=== PATIENT | female | born 1980 | race Caucasian/White ===

== ENCOUNTER → 2017-12-17 14:18 | Outpatient (CLI) | payer OTHER, SELFPAY ==
[2017-12-17 14:55] LABS: Absolute Neutrophil Count 6.6 X10^3/uL (2.0-7.7); Basophil# 0.07 X10^3/uL; Basophil% 0.7 % (0-1); Eosinophil# 0.19 X10^3/uL; Eosinophils% 1.8 % (0-5); Hematocrit 41.8 % (37-47); Hemoglobin 13.3 g/dl (12.0-15.0); Lymphocyte % 27.4 % (19-41); Mean Corp Hgb Conc 31.8 g/gl (32-36); Mean Corpuscular Hgb 27.6 pg (27.0-32.0); Mean Corpuscular Volume 86.7 fL (81-99); Mean Platelet Vol. 9.8 fl (6.2-12.0); Monocyte# 0.78 X10^3/uL; Monocyte% 7.4 % (0-10); Neutrophil # 6.61 X10^3/uL (2.7-7.7); Neutrophil % 62.5 % (47-70); Platelet Count 329 K/mm3 (150-450); RBC Distribution Width CV 13.4 % (11.6-14.6); RBC Distribution Width SD 42.5 fl (35.1-43.9); Red Blood Count 4.82 M/mm3 (4.2-5.4); White Blood Count 10.6 K/mm3 (4.4-11.0)
[2017-12-17 14:56] LABS: POSITIVE COUNT NO; POSITIVE DIFFERENTIAL NO; POSITIVE MORPHOLOGY NO
[2017-12-17 15:29] LABS: ALB/GLOB Ratio 1.1 RATIO (0.9-2.4); AST(SGOT) 18 U/L (15-37); Alanine Aminotransfer ALT/SGPT 35 U/L (13-56); Alkaline Phosphatase 50 U/L (45-117); Anion Gap 6 (5-15); BUN 11 mg/dL (7-18); BUN/Creat Ratio 14.6 RATIO (10-20); Calcium,Total 8.5 mg/dL (8.5-10.1); Chloride 105 mmol/L (98-107); Cholesterol 160 mg/dL (200); Creatinine, Serum 0.76 mg/dL (0.55-1.02); EST Glomerular Filtration Rate 92 mL/min (>60); Est Glom Filt Rate - Afr Amer 111 mL/min (>60); Globulin 3.8 g/dL (2.2-4.2); Glucose 79 mg/dL (74-106); High Density Lipoprotein 45 mg/dL; Potassium 3.9 mmol/L (3.5-5.1); Protein, Total 7.8 g/dL (6.4-8.2); Sodium Level 139 mmol/L (136-145); Thyroid Stim Hormone (TSH) 1.02 uIU/mL (0.358-3.74); Triglycerides 116 mg/dL; Very Low Density Lipoprotein 23 mg/dL (5-40)
== END ==
PROVIDERS: Family Provider Family Medicine; PCP Family Medicine; Visit Provider Family Medicine
DX: Z00.00 Encounter for general adult medical examination without abnormal findings (principal); R53.83 Other fatigue
CPT/HCPCS: 36415; 80053; 80061; 84443; 85025

== ENCOUNTER → 2018-07-14 13:51 | Outpatient (CLI) | payer OTHER, SELFPAY ==
--- NOTE | 2018-07-14 13:57 | RAD_ITS ---
STUDY: X-RAY CHEST REASON FOR EXAM: Female, 38 years old. Sharp left clavicle pain. TECHNIQUE: PA and lateral views. COMPARISON: 01/12/2017. FINDINGS: The lungs are clear and expanded. There is no demonstrated pleural abnormality. Normal size heart. Normal mediastinum and alfred. Normal visualized pulmonary arteries. Normal visualized aortic arch and descending thoracic aorta. Normal visualized thoracic spine. Normal visualized ribs, clavicles, and shoulders. There is no demonstrated abnormality of the visualized soft tissue structures of the upper abdomen. RAD/Chest PA and Lateral IMPRESSION: Normal x-ray examination of the chest and unchanged since 01/12/2017. Electronically Signed: Josemanuel Sorenson MD at 14:17 EST , Service support ,
== END ==
PROVIDERS: Family Provider Family Medicine; PCP Family Medicine; Referring Provider Family Medicine; Visit Provider Family Medicine
DX: R07.89 Other chest pain (principal)
CPT/HCPCS: 71046

== ENCOUNTER 2019-06-24 09:19 | Emergency (ER) | payer OTHER, SELFPAY ==
[2019-06-24 09:20] VITALS: BP 134/80; PULSE 98; RESP 16; TEMP 37.1; O2SAT 98; BMI 32.5
--- NOTE | 2019-06-24 09:33 | CT_ITS ---
STUDY: CT BRAIN WITHOUT CONTRAST REASON FOR EXAM: Female, 39 years old. Recent head injury. Dizziness, nausea, confusion. RADIATION DOSAGE (If Supplied By Facility): CTDIvol = ( 44.99 ) mGy, DLP = ( 745.49 ) mGycm TECHNIQUE: Transaxial CT imaging of the brain was performed without administration of intravenous contrast material. Individualized dose optimization techniques were used for this CT. COMPARISON: No relevant priors. FINDINGS: Normal soft tissue structures. Normal calvarium. Normal size ventricles and extra-axial spaces for the patient's age. Normal white matter tracts of the cerebral hemispheres. Normal basal ganglia and thalami. Normal brainstem. Normal cerebellum. There is no intracranial hemorrhage. There are no findings of an acute ischemic infarction. Partial opacification of the right mastoid air cells. CT/Brain/Head without Contrast IMPRESSION: Normal unenhanced CT scan of the brain. Partial opacification of the right mastoid air cells. Electronically Signed: Shukri Ortega, at 10:22 EST , Service support ,
--- NOTE | 2019-06-24 09:34 | ED.VIS.GEN ---
History of Present Illness Chief Complaint: Headache Informant: Patient Onset: Days - 5 days Context: Gradual Onset Timing: Waxes and wanes Current Severity: Severe Maximum Severity: Severe Narrative: Patient presents with headache and points to the left and right sides of her forehead and describing her areas of pain. Last Friday evening, 4 days ago, she was lying in her bed when her 4-year-old flipped and hit her in the left forehead. She states she had a headache at that time. On Friday she felt a little bit off but really did not have significant headache. Early Friday afternoon she developed headache which she thought was more consistent with her migraine. Typically she will take ibuprofen and lie down and her migraine resolved. She has not had any significant improvement in her headache over the past 2 days. She does have light sensitivity along with nausea and vomiting. She reports some floaters in her vision which she has intermittently had with her migraines. She denies fever or chills. - Past Medical History (1) Migraine Status: Chronic Past Medical History - Allergies and Home Meds Allergies/Adverse Reactions: Allergies hydrocodone bitartrate [From Vicodin] Allergy (Verified 01/12/17 13:37) Hives topiramate [From Topamax] Adverse Reaction (Verified 01/12/17 13:37) Other Primary Care Physician: Brayan Pavon DO [Primary Care Provider] - Surgical History: no surgical history Lives: Spouse/ Significant Other Smoking Status: Never smoker - Family History Maternal Family History: Reports: No pertinent history Review of Systems General: Denies: Chills, Fever Eyes: Reports: Visual changes - bilaterally - Floaters in vision ENT: Denies: Bilateral ear pain, Sore throat Cardiovascular: Denies: Chest pain Respiratory: Denies: Dyspnea, Cough Gastrointestinal: Reports: Nausea, Vomiting. Denies: Abdominal pain Musculoskeletal: Denies: Neck pain, Extremity Pain Skin: Denies: Rash Neurological: Reports: Headache Psych: Reports: Anxiety Allergy: Denies: Uticaria Physical Exam Vital Signs/Narrative: Vital Signs Temp Pulse Resp BP Pulse Ox 06/24/19 09:20 98.8 F 98 16 134/80 H 98 General: Well nourished, Well developed Head: Normocephalic ENT: Moist mucous membranes Cardiovascular: Regular rate, Regular rhythm Respiratory: No distress, CTA bilaterally Abdomen: Soft, Nontender, Hypoactive bowel sounds Extremities: Nontender Skin: Normal color, No rash Neurological: Alert, Oriented x3, - - No focal neuro deficit Psychological: Tearful Diagnostic/Tx/Re-eval Impressions Brain CT 06/24/19 09:33 IMPRESSION: Normal unenhanced CT scan of the brain. Partial opacification of the right mastoid air cells. Electronically Signed: Shukri Ortega, at 10:22 EST , Service support , 06/24/19 09:33 Brain/Head without Contrast [CT] Stat - Medical Decision Making She was given Toradol, Compazine, Benadryl, and IV fluids. Repeat evaluation she is feeling improved. She may have a degree of concussion, but I think majority of her headache is secondary to her underlying migraines. I discussed both migraines and concussions with patient and at bedside. Patient be discharged at this time. I will give her a short course of Toradol, Reglan, and Benadryl at home if she has recurrent migraine. ED Disposition - Plan for ED Patient: Disposition: Home or Assisted Living Diagnosis: Migraine, Concussion Instructions: ED, Migraine (Classical), CONCUSSION, No Wake Up Prescriptions: DiphenhydrAMINE [Benadryl] 50 mg PO TID PRN PRN #20 capsule PRN Reason: Migraine Symptoms Metoclopramide [Reglan] 10 mg PO Q8H PRN PRN #10 tablet PRN Reason: Migraine Symptoms Ketorolac [Toradol] 10 mg PO Q8H PRN #10 tablet PRN Reason: Migraine Symptoms Referrals: Brayan Pavon DO [Primary Care Provider] - 3-5 Days if not improving
[2019-06-24] MEDS: 0.9% Normal Saline 1,000 ML 999 ML IV (09:55)
[2019-06-24] MEDS: Ketorolac 30 MG/ML Syringe IV (09:55)
[2019-06-24] MEDS: proCHLORPERazine 10 MG/2 ML Vial IV (09:56)
[2019-06-24] MEDS: DiphenhydrAMINE 50 MG/ML Syringe 25 MG IV (09:59)
[2019-06-24 11:39] VITALS: BP 124/66; PULSE 71; RESP 15; O2SAT 98
[2019-06-24 11:56] VITALS: BP 125/67; PULSE 71; RESP 15; O2SAT 97
== END 2019-06-24 11:57 | disposition home or self-care (01) ==
PROVIDERS: Emergency Provider Emergency Medicine; Family Provider Family Medicine; PCP Family Medicine
DX: G43.909 Migraine, unspecified, not intractable, without status migrainosus (principal); S06.0X0A Concussion without loss of consciousness, initial encounter; W50.0XXA Accidental hit or strike by another person, initial encounter; Y93.9 Activity, unspecified; Y92.9 Unspecified place or not applicable
CPT/HCPCS: 70450; 96361; 96374; 96375; 99283; J7030; A4216

== ENCOUNTER → 2021-06-16 | Outpatient (CLI) | payer OTHER, SELFPAY ==
[2021-06-16 14:41] LABS: Absolute Lymphocyte Count 2.51 X10^3/uL (0.83-4.51); Absolute Neutrophil Count 7.4 X10^3/uL (2.0-7.7); Basophil# 0.09 X10^3/uL; Basophil% 0.8 % (0-1); Eosinophils% 1.8 % (0-5); Hematocrit 42.7 % (37-47); Hemoglobin 13.4 g/dL (12.0-15.0); Lymphocyte # 2.51 X10^3/ul (0.83-4.51); Lymphocyte % 22.5 % (19-41); Mean Corp Hgb Conc 31.4 g/dL (32-36); Mean Corpuscular Hgb 27.8 pg (27.0-32.0); Mean Corpuscular Volume 88.6 fL (81-99); Mean Platelet Vol. 10.4 fl (6.2-12.0); Monocyte# 0.91 X10^3/uL; Monocyte% 8.2 % (0-10); NRBC Flagged by Analyzer 0 % (0-5); Neutrophil # 7.39 X10^3/uL (2.7-7.7); Neutrophil % 66.2 % (47-70); Platelet Count 393 K/mm3 (150-450); RBC Distribution Width CV 13.1 % (11.6-14.6); RBC Distribution Width SD 42.3 fl (35.1-43.9); Red Blood Count 4.82 M/mm3 (4.2-5.4); White Blood Count 11.2 K/mm3 (4.4-11.0)
[2021-06-16 15:01] LABS: Hemoglobin A1c 5.4 % (3.8-5.6)
[2021-06-16 16:51] LABS: ALB/GLOB Ratio 0.9 RATIO (0.9-2.4); AST(SGOT) 27 U/L (15-37); Alanine Aminotransfer ALT/SGPT 49 U/L (13-56); Albumin, Serum 3.8 g/dL (3.2-5.0); Alkaline Phosphatase 63 U/L (45-117); Anion Gap 9 (5-15); BUN 12 mg/dL (7-18); BUN/Creat Ratio 17.3 RATIO (10-20); Calcium,Total 8.9 mg/dL (8.5-10.1); Chloride 105 mmol/L (98-107); Cholesterol 199 mg/dL (200); Creatinine, Serum 0.69 mg/dL (0.55-1.02); EST Glomerular Filtration Rate 100 mL/min (>60); Est Glom Filt Rate - Afr Amer 121 mL/min (>60); Estradiol 186.5 pg/mL; Free T3 3.1 pg/mL (2.18-3.98); Globulin 4.2 g/dL (2.2-4.2); Glucose 78 mg/dL (74-106); High Density Lipoprotein 43 mg/dL; Potassium 3.8 mmol/L (3.5-5.1); Sodium Level 140 mmol/L (136-145); T4 Total, Thyroxin 12.6 ug/dL (4.8-13.9); Thyroid Stim Hormone (TSH) 1.71 uIU/mL (0.358-3.74); Triglycerides 127 mg/dL; Very Low Density Lipoprotein 25 mg/dL (5-40)
[2021-06-18 09:06] LABS: Progesterone Level 0.57 ng/mL (See Comment); Vitamin B12 544 pg/mL (211-911); Vitamin D,25 Hydroxy 57.1 ng/mL
[2021-06-19 16:33] LABS: Thyroglobulin Antibody < 1.0 IU/mL (0.0-0.9); Thyroid Peroxidase AB < 8 IU/mL (0-34)
== END | disposition home or self-care (01) ==
LOC: LABSPEC 14:13
PROVIDERS: PCP Family Medicine; Visit Provider Nurse Practitioner Family
DX: R07.9 Chest pain, unspecified (principal); R53.83 Other fatigue; L65.9 Nonscarring hair loss, unspecified; E28.2 Polycystic ovarian syndrome
CPT/HCPCS: 80053; 80061; 82306; 82607; 82670; 83036; 83516; 84144; 84403; 84436; 84439; 84443; 84481; 85025; 86376; 86800

== ENCOUNTER 2021-09-06 16:53 | Outpatient (REF) | payer OTHER, SELFPAY ==
[2021-09-06 17:34] LABS: Absolute Lymphocyte Count 2.88 X10^3/uL (0.83-4.51); Absolute Neutrophil Count 9.6 X10^3/uL (2.0-7.7); Basophil# 0.09 X10^3/uL; Basophil% 0.6 % (0-1); Eosinophil# 0.39 X10^3/uL; Eosinophils% 2.7 % (0-5); Hematocrit 33.7 % (37-47); Hemoglobin 10.5 g/dL (12.0-15.0); Lymphocyte # 2.88 X10^3/ul (0.83-4.51); Lymphocyte % 20.2 % (19-41); Mean Corp Hgb Conc 31.2 g/dL (32-36); Mean Corpuscular Hgb 27.5 pg (27.0-32.0); Mean Corpuscular Volume 88.2 fL (81-99); Mean Platelet Vol. 10.6 fl (6.2-12.0); Monocyte# 1.14 X10^3/uL; NRBC Flagged by Analyzer 0 % (0-5); Neutrophil # 9.55 X10^3/uL (2.7-7.7); Neutrophil % 67.2 % (47-70); Platelet Count 435 K/mm3 (150-450); RBC Distribution Width SD 44.9 fl (35.1-43.9); Red Blood Count 3.82 M/mm3 (4.2-5.4); White Blood Count 14.2 K/mm3 (4.4-11.0)
[2021-09-06 17:59] LABS: hCG Titer Quant., Serum < 1 mIU/mL (1-3)
[2021-09-06 18:15] LABS: Anion Gap 7 (5-15); BUN 9 mg/dL (7-18); BUN/Creat Ratio 11.9 RATIO (10-20); Calcium,Total 8.5 mg/dL (8.5-10.1); Chloride 108 mmol/L (98-107); Creatinine, Serum 0.76 mg/dL (0.55-1.02); EST Glomerular Filtration Rate 90 mL/min (>60); Est Glom Filt Rate - Afr Amer 108 mL/min (>60); Glucose 122 mg/dL (74-106); Potassium 4.3 mmol/L (3.5-5.1); Sodium Level 142 mmol/L (136-145); T4 Free Direct 0.95 ng/dL (0.76-1.46); T4 Total, Thyroxin 10.4 ug/dL (4.8-13.9); Thyroid Stim Hormone (TSH) 1.05 uIU/mL (0.358-3.74)
== END 2021-09-06 23:59 | disposition short-term general hospital (02) ==
LOC: LABSPEC 16:53
PROVIDERS: PCP Family Medicine; Visit Provider Nurse Practitioner Family
DX: E03.9 Hypothyroidism, unspecified (principal); N92.0 Excessive and frequent menstruation with regular cycle
CPT/HCPCS: 80048; 84436; 84439; 84443; 84702; 85025

== ENCOUNTER → 2022-01-23 | Outpatient (CLI) | payer OTHER, SELFPAY | END | disposition home or self-care (01) | LOC: LABSPEC 12:58 | PROVIDERS: PCP Family Medicine; Visit Provider Nurse Practitioner Family | DX: Z12.4 Encounter for screening for malignant neoplasm of cervix (principal) | CPT/HCPCS: 88175; G0145 ==

== ENCOUNTER → 2022-01-25 | Outpatient (CLI) | payer OTHER, SELFPAY ==
[2022-01-25 12:08] LABS: Absolute Lymphocyte Count 2.26 X10^3/uL (0.83-4.51); Absolute Neutrophil Count 5.9 X10^3/uL (2.0-7.7); Basophil% 1.1 % (0-1); Eosinophil# 0.22 X10^3/uL; Eosinophils% 2.4 % (0-5); Hematocrit 43.1 % (37-47); Hemoglobin 13.4 g/dL (12.0-15.0); Lymphocyte # 2.26 X10^3/ul (0.83-4.51); Lymphocyte % 24.3 % (19-41); Mean Corp Hgb Conc 31.1 g/dL (32-36); Mean Corpuscular Hgb 27.3 pg (27.0-32.0); Monocyte# 0.81 X10^3/uL; Monocyte% 8.7 % (0-10); NRBC Flagged by Analyzer 0 % (0-5); Neutrophil # 5.87 X10^3/uL (2.7-7.7); Platelet Count 362 K/mm3 (150-450); RBC Distribution Width CV 13.3 % (11.6-14.6); White Blood Count 9.3 K/mm3 (4.4-11.0)
[2022-01-25 12:34] LABS: Vitamin B12 440 pg/mL (211-911)
[2022-01-25 12:39] LABS: Progesterone Level < 0.21 ng/mL (See Comment)
[2022-01-25 12:47] LABS: Hemoglobin A1c 5.6 % (3.8-5.6)
[2022-01-25 13:01] LABS: AST(SGOT) 15 U/L (15-37); Alanine Aminotransfer ALT/SGPT 29 U/L (13-56); Albumin, Serum 3.6 g/dL (3.2-5.0); Alkaline Phosphatase 51 U/L (45-117); Anion Gap 5 (5-15); BUN 13 mg/dL (7-18); BUN/Creat Ratio 18.4 RATIO (10-20); Calcium,Total 9.1 mg/dL (8.5-10.1); Chloride 110 mmol/L (98-107); Cholesterol 163 mg/dL (200); Creatinine, Serum 0.71 mg/dL (0.55-1.02); EST Glomerular Filtration Rate 97 mL/min (>60); Est Glom Filt Rate - Afr Amer 117 mL/min (>60); Estradiol 68.4 pg/mL; Ferritin 28 ng/mL (8-252); Globulin 3.6 g/dL (2.2-4.2); Glucose 91 mg/dL (74-106); High Density Lipoprotein 50 mg/dL; Iron 36 ug/dL (50-170); Potassium 4.5 mmol/L (3.5-5.1); Protein, Total 7.2 g/dL (6.4-8.2); Sodium Level 139 mmol/L (136-145); T4 Free Direct 0.98 ng/dL (0.76-1.46); Triglycerides 96 mg/dL; Very Low Density Lipoprotein 19 mg/dL (5-40)
[2022-01-29 12:08] LABS: Testosterone, % Free 1.88 % (0.50-2.80); Testosterone, Free 0.32 ng/dL (0.10-0.85); Testosterone, Total 17 ng/dL (8-60)
[2022-01-29 15:06] LABS: DHEA Sulfate 92.9 ug/dL (57.3-279.2)
== END | disposition home or self-care (01) ==
LOC: BIMLAB 10:23
PROVIDERS: PCP Nurse Practitioner Family; Referring Provider Nurse Practitioner Family; Visit Provider Nurse Practitioner Family
DX: E03.9 Hypothyroidism, unspecified (principal); R53.83 Other fatigue; E28.2 Polycystic ovarian syndrome
CPT/HCPCS: 36415; 80053; 80061; 82607; 82627; 82670; 82728; 82746; 83036; 83540; 84144; 84402; 84403; 84439; 84443; 85025; 82626

== ENCOUNTER 2022-07-10 17:04 | Outpatient (CLI) | payer OTHER, SELFPAY ==
[2022-07-10 17:21] LABS: Mucous, Urine 0 SEEN /hpf (<or=2+)
[2022-07-10 17:33] LABS: Color, Urine Yellow (Yellow); Glucose, Dipstick Normal (Normal); Ketone-Dipstick 5 mg/dl (Negative); Leukocyte Esterase-Dipstick 500 /ul (Negative); Nitrite-Dipstick Negative (Negative); Occult Blood-Urine 50 /ul (Negative); Protein-Dipstick Negative (Negative); Urine Bilirubin Dipstick Negative (Negative); Urine Clarity Turbid (Clear); Urine Urobilinogen Normal (Normal)
[2022-07-10 17:40] LABS: White Blood Cells 10-25 SEEN /hpf (0-5)
[2022-07-10 17:41] LABS: Amorphous Sediment 2+; Squamous Epithelial Cells - UA 0-5 SEEN /hpf (5-10)
[2022-07-10 17:42] LABS: Bacteria 2+ /hpf (None Seen); Red Blood Cells-Urine 0-5 SEEN /hpf (0-5)
== END 2022-07-10 23:59 | disposition home or self-care (01) ==
LOC: LABSPEC 17:04
PROVIDERS: PCP Nurse Practitioner Family; Visit Provider Nurse Practitioner Family
DX: N39.0 Urinary tract infection, site not specified (principal)
CPT/HCPCS: 81001; 87077; 87086; 87088; 87186

== ENCOUNTER 2023-03-23 04:16 | Emergency (ER) | payer OTHER, SELFPAY ==
[2023-03-23 04:17] VITALS: BP 131/52; PULSE 88; RESP 14; TEMP 35.8; O2SAT 100; BMI 33.3
--- NOTE | 2023-03-23 04:40 | RAD_ITS ---
INDICATION: chest pain EXAMINATION/TECHNIQUE: X-RAY - XR Chest 2 Views COMPARISON: 07/14/2018. FINDINGS: LINES/DEVICES: None. LUNGS: No consolidation or evidence of an effusion. No evidence of edema or a pneumothorax. MEDIASTINUM AND CARDIOVASCULAR STRUCTURES: Cardiac silhouette is normal in size and contour. Mediastinum is unremarkable. BONES AND SOFT TISSUES: No acute abnormality. RAD/Chest PA and Lateral IMPRESSION: No evidence of cardiopulmonary disease. Electronically Signed: Bucky De La Rosa DO at 5:16 EDT ,
--- NOTE | 2023-03-23 04:41 | EKG12_ITS ---
Test Reason : CP Blood Pressure : / mmHG Vent. Rate : 081 BPM Atrial Rate : 081 BPM P-R Int : 152 ms QRS Dur : 082 ms QT Int : 378 ms P-R-T Axes : 035 007 022 degrees QTc Int : 439 ms Normal sinus rhythm Normal ECG Confirmed by TEE MONTOYA ([id number]), field map editor SONY LORENZANA ([id number]) on 03/31/2023 1:58:35 PM Referred By: Confirmed By:TEE MONTOYA
[2023-03-23 04:52] LABS: Absolute Lymphocyte Count 2.58 X10^3/uL (0.83-4.51); Absolute Neutrophil Count 6.8 X10^3/uL (2.0-7.7); Basophil# 0.11 X10^3/uL; Eosinophil# 0.27 X10^3/uL; Eosinophils% 2.5 % (0-5); Hematocrit 41.2 % (37-47); Hemoglobin 13.2 g/dL (12.0-15.0); Lymphocyte # 2.58 X10^3/ul (0.83-4.51); Mean Corpuscular Volume 90.5 fL (81-99); Monocyte# 0.99 X10^3/uL; Monocyte% 9.2 % (0-10); NRBC Flagged by Analyzer 0 % (0-5); Neutrophil # 6.76 X10^3/uL (2.7-7.7); Neutrophil % 62.8 % (47-70); Platelet Count 311 K/mm3 (150-450); RBC Distribution Width CV 13.1 % (11.6-14.6); RBC Distribution Width SD 42.6 fl (35.1-43.9); Red Blood Count 4.55 M/mm3 (4.2-5.4); White Blood Count 10.8 K/mm3 (4.4-11.0)
[2023-03-23] MEDS: 0.9% Normal Saline 1,000 ML 999 ML IV (04:55)
[2023-03-23 04:57] VITALS: BP 118/66; PULSE 83
[2023-03-23] MEDS: Nitroglycerin SL (ED/IMG/CATH) 0.4 MG TABLET SL ×2 (04:57→05:48)
[2023-03-23 05:03] LABS: D-Dimer Quantitative (DVT/PE) 0.28 FEU/ug/m (0.27-0.49)
[2023-03-23 05:18] LABS: Anion Gap 6 (5-15); BUN 10 mg/dL (7-18); BUN/Creat Ratio 13.4 RATIO (10-20); Calcium,Total 8.8 mg/dL (8.5-10.1); Chloride 109 mmol/L (98-107); Creatinine, Serum 0.75 mg/dL (0.55-1.02); EST Glomerular Filtration Rate 90 mL/min (>60); Est Glom Filt Rate - Afr Amer 109 mL/min (>60); Estimated Creatinine Clearance 84.38 ml/min; Glucose 104 mg/dL (74-106); Magnesium 2.4 mg/dL (1.6-2.6); Potassium 4.3 mmol/L (3.5-5.1); Sodium Level 140 mmol/L (136-145); Troponin-I HS < 3 pg/mL (3.0-54.0)
[2023-03-23 05:46] VITALS: BP 100/63; PULSE 81; RESP 16; O2SAT 100
[2023-03-23 05:48] VITALS: BP 106/65; PULSE 76
[2023-03-23] MEDS: diazePAM 5 MG Tablet PO (06:05)
[2023-03-23 06:06] VITALS: BP 116/71; PULSE 76
--- NOTE | 2023-03-23 06:34 | EX.ED.DYSGE1 ---
HPI History of Present Illness Chief Complaint: Chest Pain Narrative Narrative: Patient is a 43-year-old female with past medical history of migraine headache and PCOS. 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 She reports that over the past 3 to 5 days she will have short-lived intermittent bouts of left-sided chest discomfort. She states that she was watching a movie with the family this evening and experienced the same chest discomfort but that it was able to wane enough to where she could fall asleep. She states however she woke around 3:30 in the morning with increased pain and this concerned her as it had never returned like this before and therefore she presents for evaluation. She denies any illicit drug use she denies any recent travel surgery or history of DVT/PE [facility] Medical History Migraine PCOS (polycystic ovarian syndrome) Home Medications multivitamin (Daily Multiple tablet) 1 ea PO DAILY 08/23/16 [History Last Taken 06/24/19] diazepam 2 mg tablet (Valium) 2 mg PO TID PRN anxiety 5 days #15 tabs 03/23/23 [Rx Last Taken Unknown] melatonin 3 mg capsule 3 mg PO QHS 03/23/23 [History Last Taken Unknown] Allergy/AdvReac Type Severity Reaction Status Date / Time hydrocodone bitartrate Allergy Hives Verified 03/23/23 04:20 [From Vicodin] topiramate [From Topamax] AdvReac Other Verified 03/23/23 04:20 Surgical History (Updated 03/23/23 @ 04:22 by Tasha Zamarripa) H/O knee surgery Hx of cholecystectomy Social History Smoking Status: Never smoker ROS ROS ED Constitutional Constitutional ED: Denies chills or fever(s) Eyes Eyes: Denies change in vision ENT ENT ED: Denies sore throat Cardiovascular Cardiovascular: Reports chest pain; Denies palpitations or racing heartbeat Respiratory/Chest Respiratory/Chest: Denies cough or dyspnea Gastrointestinal Gastrointestinal: Denies abdominal pain, diarrhea, nausea or vomiting Genitourinary Genitourinary ED: Denies dysuria Musculoskeletal Musculoskeletal: Denies myalgias Integumentary Denies rash Neurologic Neurologic: Denies headache(s) or paresthesias Hematologic/Lymphatic Hematologic/Lymphatic: Denies easy bleeding or easy bruising EXAM Physical Exam Const Vital Signs: 03/23/23 04:17 03/23/23 04:23 03/23/23 04:57 Temperature 96.5 F L Temperature Source Temporal Pulse Rate 88 83 Respiratory Rate 14 Respiratory Effort Normal Non-Labored Blood Pressure 131/52 H 118/66 Blood Pressure Mean 78 Pulse Ox 100 Oxygen Delivery Method Room Air 03/23/23 05:46 03/23/23 05:48 03/23/23 06:06 Temperature Temperature Source Pulse Rate 81 76 76 Respiratory Rate 16 Respiratory Effort Blood Pressure 100/63 106/65 116/71 Blood Pressure Mean 75 86 Pulse Ox 100 Oxygen Delivery Method Room Air Positive well nourished, well developed and obese General Appearance ED: well developed Nutritional Appearance: obese HEENT HEENT Narrative: Normocephalic atraumatic Eyes PERRL and EOMs intact bilaterally General Eye ED: Negative for scleral icterus Neck supple Neck Narrative: No nuchal rigidity or meningeal signs No crepitance palpated Chest Wall palpation of chest normal Chest Narrative: No bony deformity or crepitance Resp normal respiratory effort and clear to auscultation bilaterally Cardio regular rate and regular rhythm Rate: other Other Details: Radial and carotid pulses are equal and symmetric GI normal to inspection, nondistended, normoactive bowel sounds, non-tender, non-distended and no masses GI Narrative: No voluntary guarding or rigidity. No pulsatile mass or fluid wave. Auscultation: normoactive bowel sounds Palpation: soft Extremity normal to inspection Extremity Narrative: No asymmetric edema no pitting edema negative Homans' sign bilaterally Neuro oriented x3, CN's II-XII intact bilaterally and no sensory deficits noted Sensorium / Orientation: alert Motor Exam: strength 5/5 throughout Psych Psych Narrative: Patient has a nervous/anxious affect Skin no rashes or lesions noted MDM MDM MDM Narrative Medical decision making narrative: Ended to the ER with stable vitals and reported intermittent chest pain for the last 4 to 5 days which was now more intense. She is low risk for cardiovascular disease as well as PE but based on the recurrent symptoms I do like to perform basic cardiac work-up with D-dimer. Differential diagnosis is for acute coronary syndrome versus pulmonary embolus versus pneumonia versus pneumothorax versus anxiety versus muscular spasm or esophageal spasm. Blood work showed a normal troponin and D-dimer going against acute coronary syndrome or pulmonary embolus or dissection as a cause. Chest x-ray revealed no acute infiltrate pneumothorax or widening of the mediastinum. Patient was given Valium and this did help resolve her pain indicating that the symptoms are most likely anxiety and musculoskeletal in nature. At this time as the patient is low risk for coronary vascular disease and her D-dimer and troponin are normal I do not feel there is need for further work-up in the ER and she can be discharged home with symptomatic care. History & Record Review Discussion w/independent historian: Patient Lab Data Attestation: I reviewed the patient's lab results. Labs: Laboratory Results - last 24 hr 03/23/23 04:35 WBC 10.8 RBC 4.55 Hgb 13.2 Hct 41.2 MCV 90.5 MCH 29.0 MCHC 32.0 RDW Std Deviation 42.6 RDW Coeff of Leti 13.1 Plt Count 311 MPV 10.0 Immature Gran % (Auto) 0.500 Neut % (Auto) 62.8 Lymph % (Auto) 24.0 Jasper % (Auto) 9.2 Eos % (Auto) 2.5 Baso % (Auto) 1.0 Absolute Neuts (auto) 6.8 Absolute Lymphs (auto) 2.58 Nucleated RBC % 0 D-Dimer Quant (PE/DVT) 0.28 Sodium 140 Potassium 4.3 Chloride 109 H Carbon Dioxide 25.0 Anion Gap 6 BUN 10 Creatinine 0.75 Estim Creat Clear Calc 84.38 Est GFR (MDRD) Af Amer 109 Est GFR (MDRD) Non-Af 90 BUN/Creatinine Ratio 13.4 Glucose 104 Calcium 8.8 Magnesium 2.4 Troponin I High Sens < 3 L Radiography Diagnostic Testing: Clinical Impression(s) from Imaging Studies Chest X-Ray 03/23/23 04:40 IMPRESSION: No evidence of cardiopulmonary disease. Electronically Signed: Bucky De La Rosa DO at 5:16 EDT , 2 view chest x-ray as interpreted by the emergency medicine physician reveals no acute infiltrate pneumothorax pleural effusion or widening of the mediastinum Discharge Plan Triage Chief Complaint: Chest Pain ED Provider: Merlin Herrmann Dx/Rx/DC Orders Clinical Impression: Acute nonspecific chest pain with low risk of coronary artery disease Instructions: ED Chest Pain, Uncertain Cause Prescriptions: New diazepam [Valium] 2 mg tablet 2 mg PO TID PRN (Reason: anxiety) 5 Days Qty: 15 0RF No Action multivitamin [Daily Multiple] 1 EACH tablet 1 ea PO DAILY melatonin 3 mg capsule 3 mg PO QHS Primary Care Provider: Missy Loyd [employer] Referrals: Missy Loyd [employer], [employer]-[facility] [Primary Care Provider] - Activity Restrictions/Additional Instructions: Your work-up today for acute coronary syndrome and blood clot were negative. Symptoms could be related to muscular spasm and/or anxiety based on your increased stress. Please take the prescribed medication as directed to help control any further symptoms and if they worsen or you have any further concerns please return to the ER for repeat evaluation Disposition Disposition: Home, Self Care
[2023-03-23 07:05] VITALS: BP 102/74; PULSE 77; RESP 16
== END 2023-03-23 07:06 | disposition home or self-care (01) ==
PROVIDERS: Emergency Provider Emergency Medicine; PCP Nurse Practitioner Family; Visit Provider Emergency Medicine
DX: R07.9 Chest pain, unspecified (principal); Z90.49 Acquired absence of other specified parts of digestive tract
CPT/HCPCS: 71046; 80048; 83735; 84484; 85025; 85379; 93005; 96360; 99285; J7030; A4216

== ENCOUNTER → 2023-09-19 | Outpatient (CLI) | payer OTHER, SELFPAY | END | disposition home or self-care (01) | LOC: LABSPEC 09:56 | PROVIDERS: PCP Nurse Practitioner Family; Referring Provider Physician Assistant Surgical; Visit Provider Physician Assistant Surgical | DX: N39.0 Urinary tract infection, site not specified (principal) | CPT/HCPCS: 87086 ==

== ENCOUNTER 2024-12-29 03:20 | Emergency (ER) | payer OTHER, SELFPAY ==
[2024-12-29 03:21] VITALS: BP 126/71; PULSE 105; RESP 18; TEMP 36.8; O2SAT 97
[2024-12-29 03:24] VITALS: BP 126/71; PULSE 105; RESP 18; TEMP 36.8; O2SAT 98
[2024-12-29 03:46] LABS: Bacteria 0 SEEN /hpf (None Seen); Mucous, Urine 0 SEEN /hpf (<or=2+); White Blood Cells 0 SEEN /hpf (0-5)
[2024-12-29 03:53] LABS: Color, Urine Yellow (Yellow); Glucose, Dipstick Normal (Normal); Ketone-Dipstick Negative (Negative); Leukocyte Esterase-Dipstick Negative /ul (Negative); Nitrite-Dipstick Negative (Negative); Occult Blood-Urine 10 /ul (Negative); Protein-Dipstick 15 mg/dl (Negative); Specific Gravity, Urine 1.015 (1.002-1.030); Urine Bilirubin Dipstick Negative (Negative); Urine Clarity Clear (Clear); Urine Urobilinogen Normal (Normal)
[2024-12-29 04:07] LABS: Red Blood Cells-Urine 0-5 SEEN /hpf (0-5); Squamous Epithelial Cells - UA 0-5 SEEN /hpf (5-10)
--- NOTE | 2024-12-29 04:08 | CT_ITS ---
PROCEDURE: ABDOMEN/PELVIS WITHOUT CONT 12/29/2024 REASON FOR EXAM: PAIN TECHNIQUE: Abdomen and pelvis CT without intravenous contrast. Noncontrast technique limits evaluation of the abdominal and pelvic viscera. Coronal and Sagittal reconstruction series were provided. One or more dose reduction techniques were used (e.g., Automated exposure control, adjustment of the mA and/or kV according to patient size, use of iterative reconstruction technique). PATIENT PREPARATION: Per protocol ORAL CONTRAST TYPE: None. COMPARISON: None available FINDINGS: Platelike area of opacity and small adjacent ill-defined ground-glass nodular densities posterior right lower lobe for example axial 2 may represent infectious/inflammatory process. Visualized left lung appears clear. The liver, adrenal glands, pancreas and spleen appear within limits on noncontrast imaging. The gallbladder is not visualized. No renal stones or hydronephrosis. No evidence of ureteral or bladder stone. Ureters appear within limits on noncontrast imaging. Mild asymmetric mostly right upper pole perinephric stranding may be reactive. No bowel dilation or free air. The appendix is not identified, no secondary signs. Abdominal aorta appears within limits on noncontrast imaging. No adenopathy identified. The ovaries, uterus and bladder appear within limits on noncontrast imaging. No free fluid. The visualized osseous structures appear within limits. CT/Abdomen/Pelvis without Cont IMPRESSION: Platelike area of opacity and small adjacent ill-defined ground-glass nodular d ensities posterior right lower lobe for example axial 2 may represent infectious/inflammatory process. No renal stones or hydronephrosis. No evidence of ureteral or bladder stone. U reters appear within limits on noncontrast imaging. Mild asymmetric mostly right upper pole perinephric stranding may be reactive. Reading Location: [id number]
--- NOTE | 2024-12-29 04:10 | EDS_ITS ---
HPI HPI - Female History of Present Illness Chief Complaint: Complaint Informant: patient Associated Symptoms Associated Symptoms: Positive for Dysuria; Negative for Hematuria Narrative Narrative: 44-year-old female history of prior UTIs. Never had a kidney stone. Prior appendectomy, cholecystectomy and prior . 2-week history of intermittent urinary symptoms. Primarily intermittent dysuria. No gross hematuria. States she initially tried to treat it with cranberry juice. She did not get relief. She had a urine culture done at [facility] which showed Klebsiella causing UTI. Initially was placed on Macrobid then they changed the antibiotic to Bactrim due to the sensitivity results. States she has had some intermittent flank pain. Went to be evaluated. Denies nausea vomiting. Denies fever. Prior similar symptoms: Yes Recent Illness/Hospitalization: No PFSH PFSH Medical History UTI (urinary tract infection) PCOS (polycystic ovarian syndrome) Migraine Home Medications ?Medication ?Instructions ?Recorded ?Last Taken ?Type multivitamin (Daily Multiple 1 ea PO DAILY 08/23/16 History tablet) diazepam 2 mg tablet (Valium) 2 mg PO TID PRN anxiety 5 days #15 03/23/23 Unknown Rx tabs Saccharomyces boulardii 250 mg 250 mg PO BID 09/19/23 Unknown History capsule (Digest Probiotic (S.boulardii)) adrenal cortex (porcine) 80 mg mg PO 09/19/23 Unknown History tablet phenazopyridine 100 mg tablet 100 mg PO TID PRN pain 6 doses #7 09/19/23 Unknown Rx (Pyridium) tabs turmeric root extract 500 mg tablet 500 mg PO DAILY Unknown History Allergy/AdvReac Type Severity Reaction Status Date / Time hydrocodone bitartrate (From Allergy Hives Verified 12/29/24 03:20 Vicodin) topiramate (From Topamax) AdvReac Other Verified 12/29/24 03:20 Family History no significant family his Surgical History History of 3 sections History of appendectomy Hx of cholecystectomy H/O knee surgery Social History Smoking Status: Never smoker ROS ROS ED ROS Narrative Dysuria. Right flank pain. Constitutional Constitutional ED: Denies chills or fever(s) Eyes Eyes: Denies blurry vision ENT ENT ED: Denies ear pain Cardiovascular Cardiovascular: Denies chest pain Respiratory/Chest Respiratory/Chest: Denies cough or dyspnea Gastrointestinal Gastrointestinal: Denies abdominal pain, constipation, diarrhea, melena, nausea or vomiting Genitourinary Genitourinary ED: Reports dysuria; Denies hematuria Musculoskeletal Musculoskeletal: Reports other Details: Right lower lateral back pain. ; Denies arthralgias or myalgias Integumentary Denies abscess Neurologic Neurologic: Denies headache(s) Psychiatric Psychiatric: Denies anxiety or depression Endocrine Endocrinology: Denies heat intolerance Hematologic/Lymphatic Hematologic/Lymphatic: Denies easy bleeding, easy bruising or lymphadenopathy Allergic/Immunologic Allergic/Immunologic ED: Denies mouth swelling, tongue swelling or urticaria EXAM Physical Exam Narrative Exam Narrative: Well-appearing 44-year-old female. Vital signs are stable and afebrile. She does not look septic toxic or any distress. Pulse ox 97% on room air no hypoxia. at bedside. H EENT exam pupils round react light. Mytrex members. Neck nontender no JVD. Lungs clear to auscultation bilaterally. Heart regular rhythm rate about 105 no murmur. Chest wall and ribs nontender. Abdomen soft nontender. No peritoneal signs. No localizing tenderness. Back she has no reproducible pain. The CVA area is nontender bilaterally. She has pain in the right lower flank along the iliac crest but there is no reproducible tenderness. No rash. No signs of trauma. No redness or warmth. Moving all 4 extremities. Nontender no edema. Normal strength and range of motion. Neurologically she is awake alert answering questions and following commands. Const Vital Signs: 12/29/24 03:21 12/29/24 03:24 Temperature 98.3 F 98.3 F Temperature Source Oral Oral Pulse Rate 105 H 105 H Respiratory Rate 18 18 Blood Pressure 126/71 H 126/71 H Blood Pressure Mean 89 89 Pulse Ox 97 98 Oxygen Delivery Method Room Air Room Air Positive well nourished and well developed; Negative for cachectic, contractures or unkempt General Appearance ED: well developed and NAD; Negative for unkempt, cachectic, contractures or pallor Nutritional Appearance: Negative for cachectic HEENT Reports moist mucous membranes Eyes PERRL and EOMs intact bilaterally Neck no lymphadenopathy, supple and no JVD Chest Wall inspection of chest normal and palpation of chest normal Resp normal respiratory effort and clear to auscultation bilaterally Cardio regular rate, regular rhythm, S1 normal heart sound, no murmurs and no JVD GI normal to inspection, nondistended, normoactive bowel sounds, soft to palpation, non-tender, non-distended and no masses Auscultation: normoactive bowel sounds Palpation: Negative for tender, guarding, rigid or mass Back/Spine no CVA tenderness Back/Spine Narrative: No reproducible back pain. No CVA tenderness. General Back: Negative for CVA tenderness Cervical Spine: Negative for cervical spine tenderness Thoracic Spine / Upper Back: Negative for thoracic spinal tenderness Lumbar Spine / Lower Back: Negative for lumbar spinal tenderness Extremity normal to inspection and full ROM General Extremety ED: Negative for edema or tenderness General Extremity: Negative for edema Neuro oriented x3 and CN's II-XII intact bilaterally Sensorium / Orientation: alert, oriented to person, oriented to place and oriented to time; Negative for confused, lethargic or stuporous Motor Exam: strength 5/5 throughout; Negative for general weakness or strength abnormal Psych mental status grossly normal Appearance: Negative for unkempt Attitude: No agitated Speech: No other Mood & Affect: Negative for anxious or tearful Skin no rashes or lesions noted and no wounds General Skin Exam: Negative for jaundice or pallor Rashes: No rashes noted MDM MDM MDM Narrative Medical decision making narrative: 44-year-old female urine symptoms rule out UTI versus pyelonephritis but clinically I do not think it is that it versus possible kidney stone. CAT scan labs being obtained. She will be given Toradol for pain. She did not want any narcotics at this time. She did not need anything for nausea. Repeat exam around 5:12 AM patient is doing well. Resting comfortably. We went over her test results. I do not have a specific cause for flank pain. There is no kidney stone on CAT scan. Her labs are unremarkable. UA is negative at this time but she had a positive culture at [facility]. She will finish the current antibiotic she is on. Motrin Tylenol for pain. Follow-up with her doctor. On repeat exam she has no abdominal pain no reproducible flank pain. No rash or any other acute signs. She and her are Stephanie with her being discharged to home. Motrin and Tylenol for pain. History & Record Review Discussion w/independent historian: Patient Lab Data Attestation: I reviewed the patient's lab results. Lab results narrative: UA shows no nitrates. 0-5 red cells. 0 white cells. No bacteria. CBC normal. White count of 9.7. H&H of 13 and 41. Platelets 322. Electrolytes show sodium 138. Gap 12. BUN and creatinine are 9 and 0.7. Glucose 108. Labs: Laboratory Results - last 24 hr 12/29/24 12/29/24 03:20 03:29 WBC 9.7 RBC 4.87 Hgb 13.4 Hct 41.6 MCV 85.4 MCH 27.5 MCHC 32.2 RDW Std Deviation 42.7 RDW Coeff of Leti 13.5 Plt Count 322 MPV 10.1 Immature Gran % (Auto) 0.500 Neut % (Auto) 69.7 Lymph % (Auto) 14.2 L [place] % (Auto) 13.1 H Eos % (Auto) 1.7 Baso % (Auto) 0.8 Absolute Neuts (auto) 6.7 Absolute Lymphs (auto) 1.37 Nucleated RBC % 0 Sodium 138 Potassium 4.0 Chloride 105 Carbon Dioxide 20.6 L Anion Gap 12 BUN 9 Creatinine 0.77 Est GFR (MDRD) Non-Af 98 BUN/Creatinine Ratio 12.2 Glucose 108 H Calcium 8.6 Urine Color Yellow Urine Clarity Clear Urine pH 6.0 Ur Specific [place] 1.015 Urine Protein 15 H Urine Glucose (UA) Normal Urine Ketones Negative Urine Occult Blood 10 H Urine Nitrite Negative Urine Bilirubin Negative Urine Urobilinogen Normal Ur Leukocyte Esterase Negative Urine RBC 0-5 SEEN Urine WBC 0 SEEN Ur Squamous Epith Cells 0-5 SEEN Urine Bacteria 0 SEEN Urine Mucus 0 SEEN Radiography Diagnostic Testing: Clinical Impression(s) from Imaging Studies Abdomen/Pelvis CT 12/29/24 04:08 IMPRESSION: Platelike area of opacity and small adjacent ill-defined ground-glass nodular densities posterior right lower lobe for example axial 2 may represent infectious/inflammatory process. No renal stones or hydronephrosis. No evidence of ureteral or bladder stone. Ureters appear within limits on noncontrast imaging. Mild asymmetric mostly right upper pole perinephric stranding may be reactive. Reading Location: [facility] Discharge Plan Triage Chief Complaint: Complaint ED Provider: Curly Fallon Dx/Rx/DC Orders Clinical Impression: Acute flank pain, History of UTI Instructions: ED Flank Pain, Uncertain Cause Prescriptions: No Action turmeric root extract 500 mg tablet 500 mg PO DAILY Saccharomyces boulardii [Digest Probiotic (S.boulardii)] 250 mg capsule 250 mg PO BID adrenal cortex (porcine) 80 mg tablet PO phenazopyridine [Pyridium] 100 mg tablet 100 mg PO TID PRN (Reason: pain) Qty: 7 0RF Rx Instructions: administer with a full glass of water after each meal multivitamin [Daily Multiple] 1 EACH tablet 1 ea PO DAILY diazepam [Valium] 2 mg tablet 2 mg PO TID PRN (Reason: anxiety) 5 Days Qty: 15 0RF Primary Care Provider: Missy Loyd [employer] Referrals: Missy Loyd [employer] WORKER, [facility] [Primary Care Provider] - 3-5 Days if not improving Activity Restrictions/Additional Instructions: Your labs, urinalysis and CAT scan all look good. Finish your current antibiotic. Plenty of fluids and rest. Follow-up with your primary care provider if not improving. Motrin and Tylenol for pain. Print Language: Macedonian Disposition Disposition: Home, Self Care
[2024-12-29] MEDS: Ketorolac 30 MG/ML Syringe IV (04:15)
[2024-12-29 04:16] LABS: Absolute Lymphocyte Count 1.37 X10^3/uL (0.83-4.51); Absolute Neutrophil Count 6.7 X10^3/uL (2.0-7.7); Basophil# 0.08 X10^3/uL; Basophil% 0.8 % (0-1); Eosinophil# 0.16 X10^3/uL; Eosinophils% 1.7 % (0-5); Hematocrit 41.6 % (37-47); Hemoglobin 13.4 g/dL (12.0-15.0); Lymphocyte # 1.37 X10^3/ul (0.83-4.51); Lymphocyte % 14.2 % (19-41); Mean Corp Hgb Conc 32.2 g/dL (32-36); Mean Corpuscular Hgb 27.5 pg (27.0-32.0); Mean Corpuscular Volume 85.4 fL (81-99); Mean Platelet Vol. 10.1 fl (6.2-12.0); Monocyte# 1.27 X10^3/uL; Monocyte% 13.1 % (0-10); NRBC Flagged by Analyzer 0 % (0-5); Neutrophil # 6.73 X10^3/uL (2.7-7.7); Neutrophil % 69.7 % (47-70); Platelet Count 322 K/mm3 (150-450); RBC Distribution Width CV 13.5 % (11.6-14.6); RBC Distribution Width SD 42.7 fl (35.1-43.9); Red Blood Count 4.87 M/mm3 (4.2-5.4); White Blood Count 9.7 K/mm3 (4.4-11.0)
[2024-12-29 04:29] LABS: Anion Gap 12 (5-15); BUN 9 mg/dL (4-19); BUN/Creat Ratio 12.2 RATIO (10-20); Calcium,Total 8.6 mg/dL (7.6-11.0); Carbon Dioxide 20.6 mmol/L (21.0-32.0); Chloride 105 mmol/L (98-108); Creatinine, Serum 0.77 mg/dL (0.70-1.20); EST Glomerular Filtration Rate 98 (>60); Glucose 108 mg/dL (70-99); Sodium Level 138 mmol/L (133-145)
[2024-12-29 05:20] VITALS: PULSE 96; RESP 20; O2SAT 100
[2024-12-29 05:22] VITALS: BP 114/58; PULSE 95; RESP 18; TEMP 36.9; O2SAT 99
== END 2024-12-29 05:23 | disposition home or self-care (01) ==
PROVIDERS: Emergency Provider Emergency Medicine; Visit Provider Emergency Medicine
DX: R10.9 Unspecified abdominal pain (principal); R30.0 Dysuria; Z79.899 Other long term (current) drug therapy; Z87.440 Personal history of urinary (tract) infections
CPT/HCPCS: 74176; 80048; 81001; 85025; 96374; 99283; A4216